=== PATIENT | female | born 1975 | race Caucasian/White ===

== ENCOUNTER 2017-08-15 11:45 | Emergency (ER) | payer OTHER, BC ==
[~2017-08-15 11:45] MED LIST: Diphtheria,Pertussis(Acell),Tetanus Vaccine 0.5 ML SDV inactive IM ONE
[2017-08-15] MEDS ORDERED: Diphtheria,Pertussis(Acell),Tetanus Vaccine 0.5 ML SDV inactive ONE (12:30)
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
== END 2017-08-15 12:45 | disposition home or self-care (01) ==
LOC: LB.ED 11:45
DX: S91.312A Laceration without foreign body, left foot, initial encounter (principal); S40.211A Abrasion of right shoulder, initial encounter; S20.311A Abrasion of right front wall of thorax, initial encounter; V48.1XXA Car passenger injured in noncollision transport accident in nontraffic accident, initial encounter; Z23 Encounter for immunization
CPT/HCPCS: 71100-RT; 71101-RT; 72170; 73620-LT; 90471; 90715; 99283-25; A0425; A0429